=== PATIENT | male | born 1990 | race Caucasian/White ===

== ENCOUNTER 2016-07-28 21:19 | Emergency (ER) | payer OTHER ==
[~2016-07-28 21:19] MED LIST: BACTRIM DS TABL1 TAB PO; DILANTIN PO; IBUPROFEN800 MG PO; KEPPRA500 M2 PO; LORTAB 5/500 TA1 TA1 PO; ORUDIS75 M1 PO; TYLENOL325 M1 PO
== END 2016-07-28 22:46 | disposition home or self-care (01) ==
LOC: CED 21:19 → CFTX 21:19
DX: R04.0 Epistaxis (principal); F17.210 Nicotine dependence, cigarettes, uncomplicated
CPT/HCPCS: 99282